=== PATIENT | male | born 1970 | race Caucasian/White ===

== ENCOUNTER → 2017-07-04 | Outpatient (CLI) | payer BC | END | disposition home or self-care (01) | LOC: GMAM 10:10 | PROVIDERS: ATTEND Family Medicine | DX: Z79.899 Other long term (current) drug therapy (principal); Z12.5 Encounter for screening for malignant neoplasm of prostate ==

== ENCOUNTER → 2018-07-02 | Outpatient (CLI) | payer BC | LOC: GMAM 10:31 | PROVIDERS: ATTEND Family Medicine | DX: R56.9 Unspecified convulsions (principal) ==

== ENCOUNTER → 2019-07-06 | Outpatient (CLI) | payer BC | LOC: GMAM 10:27 | PROVIDERS: ATTEND Family Medicine | DX: E78.5 Hyperlipidemia, unspecified (principal); Z79.899 Other long term (current) drug therapy; Z12.5 Encounter for screening for malignant neoplasm of prostate ==

== ENCOUNTER 2019-08-05 05:28 | Day surgery (SDC) | payer BC ==
[2019-08-05] MEDS ORDERED: LIDOCAINE 1% 10 ML VIAL INJ ONE (07:00)
[2019-08-05] MEDS ORDERED: PROPOFOL 200 MG/20 ML VIAL IV ONE (07:00)
[2019-08-05] MEDS ORDERED: LACTATED RINGERS 1,000 ML ONE (07:06)
[2019-08-05] MEDS ORDERED: MIDAZOLAM INJ 2 MG/2 ML VIAL ONE (07:36)
[2019-08-05] MEDS ORDERED: fentaNYL CITRATE INJ 50 MCG/ML AMP ONE (07:36)
--- NOTE | 2019-08-05 09:02 | OP ---
DATE OF PROCEDURE: 08/05/19 INDICATION: This is a 49-year-old gentleman who has not had any previous colon cancer screening and desires colonoscopy for screening. POSTOPERATIVE DIAGNOSIS: 1. Colonoscopy completed to the cecum with ileocecal valve visualized, but not cannulated, with adequate prep and fairly good visualization. 2. 4 mm colonic polyp located in the ascending colon which was removed with the straight forceps biopsy. Multiple biopsies were taken. 3. Occluded sigmoid diverticula. 4. External hemorrhoid. PROCEDURE: 1. Screening colonoscopy. FINDINGS: 1. Screening colonoscopy performed to the cecum. 2. Polyp found in the ascending colon and polypectomy performed in that location. 3. Diverticula noted in the sigmoid colon. 4. External hemorrhoid noted. SURGEON: Omar Schultz MD ANESTHESIA: Per [employer]. COMPLICATIONS: None apparent. ESTIMATED BLOOD LOSS: Less than 5 cc. TECHNIQUE: The patient was brought to the GI lab and laid in the left lateral decubitus position. Digital rectal exam was performed and found to be normal other than external hemorrhoid. The colonoscope was inserted into the rectum and slowly through to the cecum. The ileocecal valve was visualized. We were unable to cannulate the ileocecal valve. The cecum, however, was well visualized. The appendiceal orifice was visualized. The scope was withdrawn gradually in the ascending colon. A 4 mm polyps was noted in that location. This was biopsied with straight forceps biopsy. Four bites were taken. The polyp was adequately removed. Good hemostasis was achieved. The scope was withdrawn gradually back through the transverse colon into the descending colon with good visualization of all those locations with no polyps. The scope was withdrawn into the sigmoid colon where there was occasional diverticula noted. The scope was gradually withdrawn into the rectum. In the rectum, the scope was retroflexed. The ilial pectinate line was visualized. No rectal polyps or lesions were noted. The scope was straightened and withdrawn gradually. The patient tolerated the procedure well. There were no obvious complications. DISPOSITION: The patient will recover in the Recovery Room until he is cleared for anesthesia standpoint. Depending on the pathology of the patient, I would recommend another colonoscopy in 5 years. #[id number] MTDD
[2019-08-05 13:30] VITALS: BP 116/77; TEMP 97.2; O2SAT 97
== END 2019-08-05 09:15 | disposition home or self-care (01) ==
LOC: AMB 05:28
PROVIDERS: ATTEND Family Medicine
DX: Z12.11 Encounter for screening for malignant neoplasm of colon (principal); D12.2 Benign neoplasm of ascending colon; K57.30 Diverticulosis of large intestine without perforation or abscess without bleeding; K64.4 Residual hemorrhoidal skin tags; E78.2 Mixed hyperlipidemia; E29.9 Testicular dysfunction, unspecified; G40.909 Epilepsy, unspecified, not intractable, without status epilepticus; Z87.891 Personal history of nicotine dependence; Z79.899 Other long term (current) drug therapy
CPT/HCPCS: 00812; 45380; J2250; J3010; J3490; J7120

== ENCOUNTER → 2020-10-24 | Outpatient (CLI) | payer BC | LOC: GMAM 14:36 | PROVIDERS: ATTEND Family Medicine | DX: R56.9 Unspecified convulsions (principal); R73.9 Hyperglycemia, unspecified; Z79.899 Other long term (current) drug therapy; Z12.5 Encounter for screening for malignant neoplasm of prostate ==